=== PATIENT | male | born 1945 | race Caucasian/White ===

== ENCOUNTER → 2016-09-27 | Outpatient (CLI) | payer MEDICARE, OTHER ==
[~2016-09-27] MED LIST: "\\\"PREP SPRAY\\\"-TIN4 OZ"; BACTROBAN N1 GM/TUBE NOSE; BUMEX1 MG PO; CELEXA20 MG PO; CIPRO250 MG PO; CLARITIN10 MG PO; CLEOCIN HCL300 MG PO; COLACE100 MG PO; CPAP INH; ELIQUIS5 MG PO; FLEET133 ML R; FLEXERIL10 MG PO; FLOMAX0.4 MG PO; FLORASTOR250 MG PO; GLUCOPHAGE500 MG PO; GLUCOTROL XL2.5 M1; K-TAB 10MEQ10 MEQ PO; K-TAB ER20 MEQ PO; LACTAID1 TAB PO; LASIX80 MG PO; LEVAQUIN 750 M750 MG PO; LEVEMIR100 UNIT/1 SUB-Q; LIORESAL DS20 MG PO; LIPITOR20 M1; MIRALAX PO527 GM/BOT PO; MIRALAX17 GM PO; MYCOSTATIN CREA30 GM TOP; NEOSPORIN1 PKT TOP; NEURONTIN300 MG PO; NORCO 5-325 MG1 TAB PO; NORCO 5-325 TA1 EACH PO; OCEAN NASAL) (A44 ML NOSE; OXYGEN M-15 INH; PROTONIX40 M1 PO; PROTONIX40 MG PO; SOMA350 MG PO; TYLENOL EXTRA500 MG PO; TYLENOL325 MG PO; ZANAFLEX4 MG; ZAROXOLYN2.5 MG PO; ZESTRIL40 MG PO
== END | disposition disaster alternative care site (69) ==
LOC: GRAD 10:20
DX: C49.8 Malignant neoplasm of overlapping sites of connective and soft tissue (principal); R91.8 Other nonspecific abnormal finding of lung field

== ENCOUNTER → 2016-10-08 | Outpatient (CLI) | payer MEDICARE, OTHER | END | disposition disaster alternative care site (69) | LOC: GRAD 11:00 | DX: R07.9 Chest pain, unspecified (principal); R06.02 Shortness of breath; R91.1 Solitary pulmonary nodule; J98.4 Other disorders of lung ==

== ENCOUNTER 2016-10-26 19:56 | Inpatient (IN) | payer MEDICARE, OTHER ==
[~2016-10-26] VITALS: Ht 180.3 cm; Wt 103.8 kg
--- NOTE | ~2016-10-26 | ER ---
PATIENT'S NAME: WAQAS ASHBY [facility] AGE: 71 Y [address] ROOM: [place] [address] LOCATION: G3 ADMIT DATE: 10/26/2016 ER/Outpatient Report DISCHARGE DATE: FAMILY PHYSICIAN: Alondra Yun ATTENDING PHYSICIAN: Cody Love TIME OF ARRIVAL: 1956 hours. TIME SEEN: 2000 hours. IDENTIFICATION: A 71-year-old male. CHIEF COMPLAINT: Hematuria. HISTORY OF PRESENT ILLNESS: The patient is a 71-year-old male who has had a fairly prolonged recent medical course where he was hospitalized in March and then again May 26 to July 06. He then went to [facility] and had surgery on T2 and T3 July 12. 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 He then had radiation therapy here, but has just recently completed that. He has had a Lebron catheter in place since his surgery in June at [facility]. He is currently on Cipro prescribed October 20 for UTI. Today, his catheter was not draining correctly; so, a friend of theirs that is a nurse changed his catheter at 2 p.m. and started draining blood and clots. He started getting uncomfortable around 4 p.m. and now presents with pain 10/10 radiating to his back into his left hip. No fever or chills. No nausea or vomiting. He does have a slight cough. No other problems or concerns. PAST MEDICAL HISTORY: His said that he has been allergic to penicillin, but they did test him at the [facility], skin tested him, and he is not actually allergic. CURRENT MEDICATIONS: 1. Pantoprazole 40 mg daily. 2. Ciprofloxacin 250 mg b.i.d. prescribed October 20. 3. Bumetanide 1 mg daily. 4. Metformin 1000 mg daily. 5. Eliquis 5 mg b.i.d. 6. Baclofen 20 mg q.i.d. 7. KCl 20 mEq daily. PATIENT'S NAME: WAQAS ASHBY [facility] AGE: 71 Y [address] 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 PRIOR SURGERIES: Low back surgery and then recent thoracic tumor removal. SOCIAL HISTORY: The patient is and lives in [place], [place]. Tobacco use, denies. Alcohol use, denies. Drug use, denies. FAMILY HISTORY: Parents with diabetes and mother had a stroke. REVIEW OF SYSTEMS: All systems reviewed and negative other than what is noted in the HPI. PHYSICAL EXAMINATION: VITAL SIGNS: Blood pressure 189/90, weight 105.5 kg, pulse 98, respirations 16, and sats 90% on room air. GENERAL: A 71-year-old male who on arrival was complaining so much of abdominal distension and pain from his bladder that we did change his catheter to a 20-Hebrew [address], but when irrigating, he complained of significant pain in his back and left hip and just crying in pain; therefore, we did obtain CT scan of his abdomen with no contrast, as at that point, we had no lab work back yet and then subsequently get his temperature, which was 101.5. Pleasant male in no acute distress. HEENT: Unremarkable. Oropharynx benign. LUNGS: Clear to auscultation. HEART: Regular rate and rhythm. ABDOMEN: Distended, protuberant, tender to palpation, specifically suprapubic tenderness. No CVA tenderness. SKIN: [place], warm, and dry. No lesions or rashes noted. NEURO: The patient is alert and oriented x4. Cranial nerves 2 through 12 grossly intact. Motor strength upper extremities 5/5 throughout. Lower extremities, 2/5 sensation is intact to light touch. Upper extremities, slightly decreased lower extremities, but he is able to sense pressure. EXTREMITIES: He has a trace of edema. No calf tenderness. LABORATORY DATA: PATIENT'S NAME: WAQAS ASHBY [facility] AGE: 71 Y [address] ROOM: [address] [address] LOCATION: [facility] ADMIT DATE: 10/26/2016 ER/Outpatient Report DISCHARGE DATE: FAMILY PHYSICIAN: Alondra Yun ATTENDING PHYSICIAN: Cody Love One-view chest x-ray, no acute process, pending Radiology over-read. Lactate is elevated at 3.3. Sodium 139, potassium 4.2, chloride 102, CO2 27, BUN 23, and creatinine 1.2. Blood sugar 169. Liver enzymes normal. GFR 59. Hemoglobin 13.2, hematocrit 42.2, platelets 241, white count 17.4, 92.8% neutrophils. INR 1.0. Procalcitonin is elevated at 1.76. EKG sinus tachycardia at 103 beats per minute. No acute ST-elevation or depression. CT scan abdomen and pelvis without contrast shows mild bladder distention and adjacent inflammatory changes, suspicious for cystitis, recommended advancement of the Lebron catheter as the balloon remains within the bulbous portion of the urethra. Urethral stricture, chronic outlet obstruction should be considered. Suspect prior transurethral prostate resection; although, the patient denies any previous prostate problems or surgeries. The balloon was only inflated to 10 mL that was deflated and the catheter attempt at advancement was unsuccessful. We did try a smaller catheter without successful advancement as well. I did talk with Dr. Hernandez who recommended leaving the catheter out. The patient did seem much more comfortable with that; and prior to that, received 100 mcg of fentanyl and 2 mg of morphine. IMPRESSION: 1. Hematuria. Plan: The patient will be left n.p.o. after midnight for cystoscopy per Dr. Hernandez. The patient will be admitted for Dr. Love. 2. Febrile illness. History of recent urinary tract infection. Blood cultures were then obtained and UA which revealed packed field of red cells, 0-2 white cells, urine culture pending. The patient did meet systemic inflammatory response syndrome criteria prior to going to the floor. Procalcitonin and lactate were not back at that time, but he had been initiated on meropenem and vancomycin. I discussed with Dr. Love, he was not hypotensive, and with his difficulty with urination and the fact that he is stable, we did not give him a fluid bolus at this time after discussion knowing that the lactate and procalcitonin were pending at this time. The patient is hemodynamically stable. I did look at his incision from his recent surgery which is clean, dry, and intact, healed, no surrounding erythema and nontender. 3. Lower extremity weakness with recent surgery involving T2-3 with involvement of the spinal cord and status post radiation therapy. 4. Diabetes mellitus, on metformin. KENYA BEAUCHAMP MD CAR/modl PATIENT'S NAME: WAQAS ASHBY [facility] AGE: 71 Y [address] ROOM: [place] [address] LOCATION: [facility] ADMIT DATE: 10/26/2016 ER/Outpatient Report DISCHARGE DATE: FAMILY PHYSICIAN: Alondra Yun ATTENDING PHYSICIAN: Cody Love /[id number] d: 10/27/16 0431 t: 10/28/16 0454, OUTPATIENT REPORT
--- NOTE | ~2016-10-26 | HP ---
PATIENT'S NAME: WAQAS ASHBY [facility] AGE: 71 Y [address] ROOM: [address] [place] [id number] LOCATION: G3N ADMIT DATE: 10/26/2016 History & Physical DISCHARGE DATE: FAMILY PHYSICIAN: Alondra Yun ATTENDING PHYSICIAN: Tee Love DATE OF SERVICE: CHIEF COMPLAINT: Sepsis in the setting of gross hematuria. HISTORY OF PRESENTING ILLNESS: This 71-year-old white male, who is well known to our service, was brought to the emergency department this evening with gross hematuria after catheter exchange performed earlier in the day. Briefly, Mr. Ashby had been admitted here in June of 2015 with progressive leg weakness. He had a fairly long and complicated hospital course. Ultimately, he was referred to the [facility] where he was diagnosed with a hemangiopericytoma at the level of T2. He did undergo resection in June of 2016 and has subsequently received some radiation treatments. He is scheduled to receive 28 additional radiation treatments apparently. Subsequently, he has had urinary incontinence and a chronic indwelling Lebron catheter was placed. He had not had any significant difficulties with that over the preceding months, but was diagnosed with a UTI recently. A nurse who is also a family acquaintance offered to change the catheter today and this was performed without any significant complication. Over the course of the day, however, he did notice some hematuria as well as some clotting. He subsequently came to the emergency room. After his arrival here, he was noted to have significant fever. The catheter was exchanged for an irrigation catheter. Unfortunately he develops significant pain associated with that and that had to be discontinued. Presently, he is able to pass some bloody urine without the catheter in place. Because of the concern for evolving sepsis and persistent problems with gross hematuria, he is admitted for definitive evaluation and management. He does complain of some bandlike back and flank pain, which radiates around to the chest. He states it feels like it did prior to surgery. Denies loretta chest pain. No palpitations. He has not had any abdominal pain. Stools have been regular, but with the use of nightly enemas. He denies numbness or tingling in his extremities, but is profoundly weak. He has been able to stand during therapy sessions, but with two person assist. MEDICAL ALLERGIES: Penicillin. PATIENT'S NAME: WAQAS ASHBY [facility] AGE: 71 Y [address] ROOM: [address] [place], [place] [address] LOCATION: [facility] ADMIT DATE: 10/26/2016 History & Physical DISCHARGE DATE: FAMILY PHYSICIAN: Alondra Yun ATTENDING PHYSICIAN: Tee Love PAST MEDICAL HISTORY: 1. Hemangiopericytoma T2 status post resection. Currently on radiation therapy. 2. DVT with pulmonary embolism on long-term anticoagulation with Eliquis. 3. Diabetes mellitus type 2. 4. Essential hypertension. 5. Obstructive sleep apnea, uses CPAP. 6. Chronic diastolic congestive heart failure. CURRENT MEDICATIONS: Eliquis 5 mg p.o. b.i.d., baclofen 20 mg p.o. q.i.d., Bumex 1 mg p.o. q.a.m., ciprofloxacin 250 mg p.o. b.i.d., CPAP at h.s., metformin 1000 mg p.o. daily, oxygen at h.s., Protonix 40 mg p.o. daily, potassium 20 mEq p.o. daily. FAMILY HISTORY: Significant for diabetes mellitus in both of his parents. Mother suffered a stroke. SOCIAL HISTORY: He is and lives in [place], [place]. He has worked at the [employer] until this past year. He is a lifelong nonsmoker and there is no significant history of alcohol use. REVIEW OF SYSTEMS: As per HPI. All other organ systems reviewed and are negative. OBJECTIVELY: VITAL SIGNS: Temperature 101.5, pulse 98, respirations 16, blood pressure 189/90, O2 saturation 90% on room air. GENERAL: He is disheveled, mildly ill appearing, but in no acute distress. SKIN: Supple, pink, warm, dry. There are no obvious rashes. HEENT: Otherwise, normocephalic. Sclerae nonicteric. Pupils equal, round, reactive to light and accommodation. Extraocular movements appear intact. Nasal turbinates normal in appearance. Oropharynx clear. Mucous membranes pink and moist. NECK: Supple. No masses or adenopathy. No thyromegaly. No JVD. CHEST: Wall is symmetrical. HEART: Regular without murmurs. LUNGS: Clear bilaterally. No wheezes or crackles are heard. ABDOMEN: Soft and obese. Mildly distended. Tympanitic. Bowel sounds are present. No masses or hepatosplenomegaly. and RECTAL: Exam shows normal male external genitalia. EXTREMITIES: Display trace pitting edema. No cyanosis. Neurologically cranial nerves 2 through 12 appear grossly intact. Sensation appears normal. PATIENT'S NAME: WAQAS ASHBY [facility] AGE: 71 Y [address] ROOM: [place] [address] LOCATION: [facility] ADMIT DATE: 10/26/2016 History & Physical DISCHARGE DATE: FAMILY PHYSICIAN: Alondra Yun ATTENDING PHYSICIAN: Tee Love Strength is 4 to 5/5 bilaterally in upper extremities and 1 to 2/5 in the bilateral lower extremities. DTRs are 0 to 1+ and roughly symmetrical. Gait is not observed. LABORATORY AND X-RAY DATA: A CBC showed a white blood cell count elevated at 17.4, hemoglobin is 13.2, hematocrit 42.2, platelets 241. Chemistries revealed BUN and creatinine 23 and 1.2 respectively; sodium and potassium 139 and 4.2; chloride and CO2 are 102 and 27; AST and ALT 29 and 31; bilirubin is 0.7, glucose was elevated at 169; PT and PTT 10.2 and 26 with an INR of 1.0. Urinalysis was significant for packed red blood cells 0-2 wbc's. Lactate was elevated at 3.3. Procalcitonin was elevated at 1.76, influenza A and B were negative. Chest x- ray, negative for any acute infiltrate. ASSESSMENT/PLAN: 1. Sepsis. We will admit to inpatient care. He already received IV meropenem and vancomycin in the ER. We will plan to continue with that regimen and await blood cultures. We will tailor his antibiotic regimen accordingly. He is currently hemodynamically stable. There is no evidence of end-organ dysfunction. We will continue with supportive cares and close clinical monitoring and make adjustments if necessary. I am mildly concerned for epidural abscess given the relatively new development of some radicular symptoms. We will plan for MRI scan in the morning. 2. Gross hematuria. I suspect this is probably related to catheter trauma. Less likely related to his recent urinary tract infection. There does not appear to be any residual evidence of urinary tract infection. We will try to hold off on replacing the catheter for now. We will request Urology consultation by Dr. Hernandez in the morning and consider the possibility of cystoscopy. 3. Hemangiopericytoma T2 status post resection, currently on radiation therapy. This is apparently a nonmalignant lesion and the treatment rationale for radiation is to prevent proliferation of residual tumor. Plan to continue with some restorative care including physical therapy, occupational therapy, as he tolerates. The goal is home when appropriate for discharge. 4. Diabetes mellitus type 2. We will manage with Accu-Cheks and sliding scale insulin. 5. Chronic diastolic congestive heart failure, currently appears to be compensated. 6. Obstructive sleep apnea. Encouraged compliance with CPAP at h.s. and supplemental oxygen. 7. Bilateral leg weakness. Physical therapy and occupational therapy, on an ongoing basis. 8. Deep venous thrombosis with history of PE on long-term anticoagulation PATIENT'S NAME: WAQAS ASHBY [facility] AGE: 71 Y [address] ROOM: [place] [address] LOCATION: [facility] ADMIT DATE: 10/26/2016 History & Physical DISCHARGE DATE: FAMILY PHYSICIAN: Alondra Yun ATTENDING PHYSICIAN: Tee Love with Eliquis, we will hold the Eliquis [facility]. TEE LOVE MD AJMalick/modl /[id number] D: [id number] T: [id number] HISTORY & PHYSICAL
--- NOTE | ~2016-10-26 | OR ---
PATIENT'S NAME: WAQAS ASHBY [facility] AGE: 71 Y [address] ROOM: [address] [place] [address] LOCATION: G3N ADMIT DATE: 10/26/2016 OR/Procedure Report DISCHARGE DATE: FAMILY PHYSICIAN: Alondra Yun ATTENDING PHYSICIAN: Cody Love SURGEON: Osmar Curtis MD AUTOMOTIVE PAINTER HELPER: DATE OF PROCEDURE: 10/26/2016 HISTORY: This is a 71-year-old gentleman admitted last night with gross hematuria and clots as well as possible urinary tract infection. He has had severe infection recently. He has a relevant history of having a hemangiopericytoma. He has had resection. By history, he has an associated neurogenic bladder. He tells me that a Lebron catheter was placed when he had his surgery at the [facility]. He does not recall any urologic evaluation. He has had a catheter since. He had a prolonged postoperative hospitalization. He had staph sepsis. By history, he also has a neurogenic bowel. He is on a daily enema. With that history, and with his indwelling catheter, a local nurse, who is a friend, changed his catheter yesterday. By his report, there was a little bit of bleeding at the time of catheter change. He is on Eliquis. The bleeding increased, and he ultimately ended up in the emergency room last night. He was having gross hematuria with clots. An attempt was made to irrigate with a 3-way catheter. He had a CT scan done. It looks like the balloon was blown up in the urethra. Dr. Kiran then consulted me. The patient presents now for cystoscopy and clot evacuation. DESCRIPTION OF PROCEDURE: Having obtained informed consent, the patient was taken to the operating room. He was prepped and draped sterilely and in lithotomy position. He was still bleeding per urethra. Cystoscopy was undertaken. We found the problem was a significant false passage from one of the catheter attempts. Again, we had CT evidence that the balloon was blown up in the urethra. Moving onto the bladder, we also found chronic catheter changes as well as diffuse changes consistent with cystitis. He is on multiple antibiotics at this point. He just had some small clots which were irrigated out. Both orifices were unremarkable. Bladder examination was confirmed with a 70-degree lens. Under cystoscopic visualization, I passed a whistle-tip catheter. Over that, I passed a 20-Yi [place]-tip catheter successfully by passing the false passage. The catheter irrigated nicely. The patient tolerated the procedure well. PATIENT'S NAME: WAQAS ASHBY [facility] AGE: 71 Y [address] ROOM: [place] [address] LOCATION: [facility] ADMIT DATE: 10/26/2016 OR/Procedure Report DISCHARGE DATE: FAMILY PHYSICIAN: Alondra Yun ATTENDING PHYSICIAN: Cody Love BLOOD LOSS: Minimal. SPECIMENS: No specimens were sent. DISPOSITION: The patient returned to the recovery area, awake and in stable condition. OSMAR CURTIS MD SF/jonathanl /[id number] CC: TATA Lion d: 10/27/16 1136 t: 11/09/16 1039, OPERATIVE SUMMARY
[~2016-10-26 19:56] MED LIST changes: -CIPRO250 MG PO; -FLEET133 ML R; -FLORASTOR250 MG PO; -GLUCOTROL XL2.5 M1; -LEVAQUIN 750 M750 MG PO; -LIPITOR20 M1; -NEURONTIN300 MG PO; -ZANAFLEX4 MG
[2016-10-26 20:56] LABS: BASOPHIL % 0.2 %; EOSINOPHIL # 0.1 K/uL (0.0-0.5); EOSINOPHIL % 0.6 %; HEMATOCRIT 42.2 % (37.0-53.0); HEMOGLOBIN 13.2 g/dL (11.0-16.0); IMMATURE GRANULOCYTE # 0.1 K/uL (0.0-0.3); IMMATURE GRANULOCYTE % 0.7 %; LYMPHOCYTE # 0.6 K/uL (0.8-4.0); LYMPHOCYTE % 3.6 %; MCH 29.3 pg (27.0-34.0); MCHC 31.3 gm/dL (32.0-36.5); MCV 93.6 fl (83.0-98.0); MONOCYTE # 0.4 K/uL (0.0-1.0); MONOCYTE % 2.1 %; MPV 10.1 fl (9.4-12.4); NEUTROPHIL # (ANC) 16.2 K/uL (1.4-9.0); NEUTROPHIL % 92.8 %; NRBC % 0 /100WBC (0-0.00); PLATELET COUNT 241 K/uL (150-450); RDW-CV 15.2 % (11.9-14.6)
[2016-10-26 21:02] LABS: RBC 4.51 M/uL (3.50-5.50); WBC 17.4 K/uL (4.0-11.0)
[2016-10-26 21:06] LABS: PROTIME 10.2 SECONDS (9.6-11.1); PTT 26 SECONDS (25-32)
[2016-10-26 21:12] LABS: ALBUMIN 3.4 gm/dL (3.5-5.0); ANION GAP 14.2 (10.0-19.0); CALCIUM 8.6 mg/dL (8.5-10.5); CREATININE 1.2 mg/dL (0.6-1.3); POTASSIUM 4.2 mMol/L (3.7-5.1); TOTAL BILIRUBIN 0.7 mg/dL (0.0-1.5); TOTAL PROTEIN 7.4 g/dL (6.0-8.4)
[2016-10-26 22:06] LABS: BILIRUBIN URINE NEGATIVE (NEGATIVE); BLOOD URINE 250 /UL (NEGATIVE); GLUCOSE URINE NEGATIVE (NEGATIVE); KETONE URINE 5 mg/dL (NEGATIVE); LEUKOCYTES URINE 100 /UL (NEGATIVE); NITRITE URINE NEGATIVE (NEGATIVE); PH URINE 6.5 (4.0-8.0); PROTEIN URINE 100 mg/dL (NEGATIVE); UROBILINOGEN URINE NORMAL (NORMAL)
[2016-10-26 22:22] LABS: BACTERIA URINE RARE (NEGATIVE); COLOR URINE RED (YELLOW); EPITHELIAL URINE 0-2 #/HPF (NEGATIVE); RBC URINE PACKED FIELD #/HPF (NEGATIVE); TURBIDITY URINE 4+ (CLEAR); WBC URINE 0-2 #/HPF (NEGATIVE)
[2016-10-26] MEDS ORDERED: CIPRO250 MG PO (23:25)
--- NOTE | 2016-10-26 23:47 | NUR ---
PATIENT HAS A PERMENANT CATHETER. THE CATHETER WAS CHANGED TODAY AND THE STATED THAT THERE WAS A LITTLE URINE AFTER CATHETER PLACEMENT, BUT NONE HAD COLLECTED IN THE CATHETER BAG. PATIENT CALLED HIS AND STATED THAT SOMETHING WAS WRONG AND FOUND BLOOD BY HIS PENIS. CLOTS BEGAN TO GO THROUGH THE CATHETER. THE CATETER WAS IRRIGATED BUT KEPT PASSING CLOTS THROUGH THE CATETER. THE PATIENTS BROUGHT HIM BY PRIVATE TO THE [facility].
--- NOTE | 2016-10-27 04:58 | NUR ---
Significant Event: Full lift. Patient is a parapalegic. NPO. Repositioned. Incontinent of bloody urine. Coccyx slightly reddened. Tachycardic, better now. A&O x3. Bladder scan once a shift and call if it is 400ml or greater. Numb from bottom of knees to feet, but has some sensation. Denies pain. Follow up:
--- NOTE | 2016-10-27 16:29 | NUR ---
Significant Event: Pt is a/o. Cooperative with cares. Went to OR for cysto and duran placement this am. Duran patent with red tinged urine. no clots noted. Have not needed to irrigate duran. Repos. q 2 hr. Accuchecks ac/hs. Had MRI spine today. IV NS @ 50hr. O22L with cpap @ hs. Does not have his own here. Numbness to ro feet/legs. Total lift. Will have dulcolax supp around 1700. Plan on getting him to commode per lift. Follow up:
--- NOTE | 2016-10-28 04:11 | NUR ---
Significant Event: Total lift. Repositioned. Wears a CPAP with 2 L at night. Does not have the CPAP here, but has the 2 L on. Lebron catheter with yellow urine output. Accu check. Is a parapalegic. Denies pain. Numb to lower legs bilaterally. Has an enema every night before bed. Follow up:
[2016-10-28 05:36] LABS: BASOPHIL % 0.2 %; EOSINOPHIL # 0.1 K/uL (0.0-0.5); EOSINOPHIL % 2.7 %; HEMOGLOBIN 10.4 g/dL (11.0-16.0); IMMATURE GRANULOCYTE % 0.7 %; LYMPHOCYTE # 0.7 K/uL (0.8-4.0); LYMPHOCYTE % 14.8 %; MCH 29.5 pg (27.0-34.0); MCV 94.1 fl (83.0-98.0); MONOCYTE # 0.4 K/uL (0.0-1.0); MONOCYTE % 8.7 %; NEUTROPHIL # (ANC) 3.2 K/uL (1.4-9.0); NEUTROPHIL % 72.9 %; NRBC % 0 /100WBC (0-0.00); RBC 3.53 M/uL (3.50-5.50); RDW-CV 15.9 % (11.9-14.6); WBC 4.4 K/uL (4.0-11.0)
[2016-10-28 05:43] LABS: HEMATOCRIT 33.2 % (37.0-53.0); MCHC 31.3 gm/dL (32.0-36.5); PLATELET COUNT 182 K/uL (150-450)
[2016-10-28 05:47] LABS: BLOOD UREA NITROGEN 12 mg/dL (6-24); CALCIUM 8.5 mg/dL (8.5-10.5); CHLORIDE 108 mMol/L (96-110); CO2 26 mMol/L (22-32); CREATININE 0.8 mg/dL (0.6-1.3); ESTIMATED GFR (MDRD EQUATION) > 60; SODIUM 143 mMol/L (135-145)
--- NOTE | 2016-10-28 13:00 | NUR ---
SPOKE TO WAQAS REGARDING CM AND OUR ROLE. PATIENT LIVES IN OWN HOME WITH SPOUSE AND HE IS PLANNING ON RETURNING THERE ONCE HE IS READY FOR DISCHARGE. PATIENT DOES NOT ANTCIPATE ANY DISCHARGE NEEDS AT THIS TIME.
[2016-10-28] MEDS ORDERED: MIRALAX17 GM PO (14:22)
[2016-10-28] MEDS ORDERED: FLEET133 ML R (14:23)
[2016-10-28] MEDS ORDERED: FLORASTOR250 MG PO (14:24)
[2016-10-28] MEDS ORDERED: LEVAQUIN 750 M750 MG PO (14:24)
--- NOTE | 2016-10-28 15:36 | NUR ---
Reviewed discharge instructions with patient and his . both verbalize understanding of all instructions. Refer to instructions for details. already understands catheter care, bag changing, s/s infection. Reviewed all medications, new and stopped ones. All belongings sent with patient. Assisted patient with lift to his own w/c. To front door per w/c.
[2016-12-21] MEDS ORDERED: NEURONTIN300 MG PO (17:21)
[2017-02-15] MEDS ORDERED: LIPITOR20 M1 (12:05)
[2017-02-15] MEDS ORDERED: ZANAFLEX4 MG (12:06)
[2017-03-14] MEDS ORDERED: GLUCOTROL XL2.5 M1 (14:19)
== END 2016-10-28 15:03 | disposition disaster alternative care site (69) | DRG 698 ==
LOC: GMED 19:56 → G3N 22:07
PROVIDERS: Family Medicine; Nurse Practitioner Family; ADMIT Family Medicine
PROC: 0TCB8ZZ Extirpation of Matter from Bladder, Via Natural or Artificial Opening Endoscopic (ICD-10-PCS; principal; 2016-10-26)
DX: T83.511A Infection and inflammatory reaction due to indwelling urethral catheter, initial encounter (principal); A41.9 Sepsis, unspecified organism; J96.11 Chronic respiratory failure with hypoxia; G82.20 Paraplegia, unspecified; I50.32 Chronic diastolic (congestive) heart failure; E11.9 Type 2 diabetes mellitus without complications; G47.33 Obstructive sleep apnea (adult) (pediatric); I10 Essential (primary) hypertension; R31.9 Hematuria, unspecified; Z99.81 Dependence on supplemental oxygen; Z86.718 Personal history of other venous thrombosis and embolism; Z79.01 Long term (current) use of anticoagulants; R31.0 Gross hematuria; N30.90 Cystitis, unspecified without hematuria
CPT/HCPCS: C9113; J2185; J2270; J3010; J3370; J7030; J7040

== ENCOUNTER → 2016-12-09 | Outpatient (CLI) | payer MEDICARE, OTHER ==
[~2016-12-09] MED LIST changes: +CIPRO250 MG PO; +FLEET133 ML R; +FLORASTOR250 MG PO; +GLUCOTROL XL2.5 M1; +LEVAQUIN 750 M750 MG PO; +LIPITOR20 M1; +NEURONTIN300 MG PO; +ZANAFLEX4 MG
== END | disposition disaster alternative care site (69) ==
LOC: GRAD 10:16
DX: D49.7 Neoplasm of unspecified behavior of endocrine glands and other parts of nervous system (principal)
CPT/HCPCS: A9577

== ENCOUNTER → 2016-12-24 | Day surgery (SDC) | payer MEDICARE, OTHER ==
[~2016-12-24] VITALS: Ht 180.3 cm; Wt 107.5 kg
--- NOTE | ~2016-12-24 | OR ---
PATIENT'S NAME: WAQAS ASHBY [facility] AGE: 71 Y [address] ROOM: [place] [address] LOCATION: [facility] ADMIT DATE: 12/24/2016 OR/Procedure Report DISCHARGE DATE: FAMILY PHYSICIAN: PHILLIP VELAZQUEZ PA-C ATTENDING PHYSICIAN: Osmar Curtis SURGEON: Osmar Curtis MD BENDER MACHINE: DATE OF PROCEDURE: 12/24/2016 PREOPERATIVE DIAGNOSES: 1. Neurogenic bladder. 2. Complication secondary to neurogenic bladder including urinary tract infections and gross hematuria after urethral catheter trauma. 3. Underlying benign prostatic hypertrophy. POSTOPERATIVE DIAGNOSIS: 1. Neurogenic bladder. 2. Complication secondary to neurogenic bladder including urinary tract infections and gross hematuria after urethral catheter trauma. 3. Underlying benign prostatic hypertrophy. PROCEDURE: Cystoscopy with suprapubic tube placement. ANESTHESIA: Local with sedation. INDICATION: This is a 71-year-old gentleman who has a neurogenic bladder. He had undergone resection of a locally destructive but otherwise benign spinal cord lesion at the [facility]. He has been managed with the catheter drainage ever since. I first met him urgently approximately two months ago. He had had gross hematuria after an outpatient catheter change went [facility]. We had to scope him to get a catheter in. Bleeding at that time was exacerbated by his chronic Eliquis therapy. Considering his history and associated complications, he presents this time for suprapubic tube placement for chronic management of his neurogenic bladder. DESCRIPTION OF PROCEDURE: Having obtained informed consent, the patient was taken to the operating room. He was prepped and draped sterilely and in lithotomy position. IV sedation was administered. A curved Lowsley retractor was placed. The skin subcu tissue over the Lowsley was infiltrated with 1% lidocaine with epinephrine. A 1.5 cm incision was made. The incision was a little larger because he is obese. We have a lot of adipose to go through. We worked our way down on to the [place]ley which was then brought through the abdominal incision. We secured a 20-Surinamese Lebron catheter to it and brought it back out through the urethra in an antegrade fashion. PATIENT'S NAME: WAQAS ASHBY [facility] AGE: 71 Y [address] ROOM: [place] [address] LOCATION: [facility] ADMIT DATE: 12/24/2016 OR/Procedure Report DISCHARGE DATE: FAMILY PHYSICIAN: PHILLIP VELAZQUEZ PA-C ATTENDING PHYSICIAN: Osmar Curtis I followed the catheter back in cystoscopically. With the catheter in good position, the balloon was inflated. The incision was closed with a Prolene suture, which was also used to secure the catheter. The catheter irrigates nicely. The patient tolerated the procedure well. Blood loss was minimal. No specimens sent. The patient returned to the outpatient recovery area awake and stable condition. OSMAR CURTIS MD SFH/erica /[id number] CC: MALINDA Mendieta MD d: 12/24/16 1411 t: 01/04/17 0634, OPERATIVE SUMMARY
[2016-12-24 08:44] LABS: BASOPHIL % 0.3 %; EOSINOPHIL # 0.3 K/uL (0.0-0.5); EOSINOPHIL % 4.5 %; HEMATOCRIT 37.4 % (37.0-53.0); HEMOGLOBIN 11.7 g/dL (11.0-16.0); IMMATURE GRANULOCYTE # 0.1 K/uL (0.0-0.3); IMMATURE GRANULOCYTE % 0.9 %; LYMPHOCYTE # 1.4 K/uL (0.8-4.0); LYMPHOCYTE % 22.1 %; MCH 28.9 pg (27.0-34.0); MCHC 31.3 gm/dL (32.0-36.5); MCV 92.3 fl (83.0-98.0); MONOCYTE # 0.5 K/uL (0.0-1.0); MPV 10.5 fl (9.4-12.4); NEUTROPHIL # (ANC) 4.1 K/uL (1.4-9.0); NEUTROPHIL % 64.2 %; NRBC % 0 /100WBC (0-0.00); RBC 4.05 M/uL (3.50-5.50); RDW-CV 14.8 % (11.9-14.6); WBC 6.4 K/uL (4.0-11.0)
[2016-12-24 08:47] LABS: PLATELET COUNT 247 K/uL (150-450)
[2016-12-24 09:01] LABS: ALBUMIN 3.2 gm/dL (3.5-5.0); ALK PHOS 143 IU/L (33-138); ALT 27 IU/L (12-78); ANION GAP 10.9 (10.0-19.0); AST 23 IU/L (10-40); BLOOD UREA NITROGEN 17 mg/dL (6-24); CALCIUM 8.7 mg/dL (8.5-10.5); CHLORIDE 106 mMol/L (96-110); CO2 30 mMol/L (22-32); CREATININE 0.9 mg/dL (0.6-1.3); ESTIMATED GFR (MDRD EQUATION) > 60; POTASSIUM 3.9 mMol/L (3.7-5.1); SODIUM 143 mMol/L (135-145); TOTAL PROTEIN 7.1 g/dL (6.0-8.4)
[2016-12-24 09:02] LABS: TOTAL BILIRUBIN 0.4 mg/dL (0.0-1.5)
== END | disposition disaster alternative care site (69) ==
LOC: GPOC 12-21 16:00 → GSDC 07:56
PROVIDERS: Urology
PROC: 0T9B00Z Drainage of Bladder with Drainage Device, Open Approach (ICD-10-PCS; principal; 2016-12-24)
DX: N31.9 Neuromuscular dysfunction of bladder, unspecified (principal); N39.0 Urinary tract infection, site not specified; R31.0 Gross hematuria; N40.0 Benign prostatic hyperplasia without lower urinary tract symptoms; E11.9 Type 2 diabetes mellitus without complications; I10 Essential (primary) hypertension; G47.33 Obstructive sleep apnea (adult) (pediatric); Z86.718 Personal history of other venous thrombosis and embolism; Z98.1 Arthrodesis status
CPT/HCPCS: J1956; J2001; J7030

== ENCOUNTER → 2017-03-07 | Outpatient (CLI) | payer MEDICARE, OTHER | END | disposition disaster alternative care site (69) | LOC: GRAD 08:53 | DX: R79.89 Other specified abnormal findings of blood chemistry (principal) ==